=== PATIENT | female | born 1975 | race Caucasian/White ===

== ENCOUNTER 2017-04-18 17:19 | Emergency (ER) | payer BC, OTHER ==
[~2017-04-18] VITALS: Ht 144.8 cm; Wt 62.0 kg
[2017-04-18 17:25] VITALS: Ht 144.8 cm; Wt 62.0 kg
[2017-04-18 18:06] LABS: ADD SCAN DIFF NO
[2017-04-18 18:08] LABS: BASOPHIL # 0.1 10^3/ul (0.0-0.1); BASOPHILS % 0.9 % (0.0-2.0); EOSINOPHILS # 0.1 10^3/ul (0.0-0.5); EOSINOPHILS % 2.1 % (0.0-7.0); HEMATOCRIT 39.6 % (37.0-47.0); HEMOGLOBIN 13.7 g/dl (12.0-16.0); LYMPHOCYTES # 1.7 10^3/ul (0.8-2.9); LYMPHOCYTES % 25.1 % (15.0-51.0); MEAN CORPUSCULAR HEMOGLOBIN 33.5 pg (29.0-33.0); MEAN CORPUSCULAR HGB CONC 34.6 g/dl (32.0-37.0); MEAN CORPUSCULAR VOLUME 96.8 fl (82.0-101.0); MEAN PLATELET VOLUME 12.7 fl (7.4-10.4); MONOCYTE # 0.4 10^3/ul (0.3-0.9); MONOCYTES % 6.5 % (0.0-11.0); NEUTROPHIL # 4.4 10^3/ul (1.6-7.5); NEUTROPHILS % 65.1 % (39.0-77.0); PLATELET COUNT 160 10^3/UL (140-415); RED BLOOD COUNT 4.09 10^6/ul (4.20-5.40); RED CELL DISTRIBUTION WIDTH 12.1 % (11.5-14.5); WHITE BLOOD COUNT 6.7 10^3/ul (4.8-10.8)
--- NOTE | 2017-04-18 18:38 | ERD ---
ER Documentation Chief Complaint Date/Time DATE: 04/18/17 TIME: 18:35 Chief Complaint VAG BLEED , 4 WEEKS PREG HPI 41-year-old female [place]-speaking. [employer]crete [employer] use. The patient is at approximately 4 weeks. She has had approximately 2 weeks of cramping and bleeding worse over the past several days. She denies any lightheadedness or dizziness. She followed up with her KILN OPERATOR but states that nothing was done for her at that time. ROS All systems reviewed and are negative except as per history of present illness. Medications Home Meds Active Scripts Nitrofurantoin Monohyd Macrocr* (Macrobid*) 100 Mg Capsr, 100 MG PO BID for 7 Days, CAP Prov:MIKKI EMMANUEL MD 04/18/17 PMhx/Soc Medical and Surgical Hx: pt denies Medical Hx, pt denies Surgical Hx Hx Alcohol Use: No Hx Substance Use: No Hx Tobacco Use: No Smoking Status: Never smoker Physical Exam Vitals Vital Signs Date Time Temp Pulse Resp B/P Pulse Ox O2 Delivery O2 Flow Rate FiO2 04/18/17 17:25 97.6 90 18 115/66 99 Physical Exam General: Well developed, well nourished, no acute distress Head: Normocephalic, atraumatic. Eyes: Pupils equally reactive, EOM intact ENT: Moist mucous membranes Neck: Supple, no lymphadenopathy Respiratory: Lungs clear bilaterally, no distress Cardiovascular: RRR, no murmurs, rubs, or gallops Abdominal: Soft, non-tender, non-distended, no peritoneal signs : Deferred MSK: No edema, no unilateral swelling, 5/5 strength Neurologic: Alert and oriented, moving all extremities, normal speech, no focal weakness, no cerebellar signs Skin: No rash Psych: Normal mood Result Diagram: 04/18/17 9831 Results 24 hrs Laboratory Tests Test 04/18/17 17:57 04/18/17 18:00 White Blood Count 6.710^3/ul Red Blood Count 4.0910^6/ul Hemoglobin 13.7g/dl Hematocrit 39.6% Mean Corpuscular Volume 96.8fl Mean Corpuscular Hemoglobin 33.5pg Mean Corpuscular Hemoglobin Concent 34.6g/dl Red Cell Distribution Width 12.1% Platelet Count 50414^3/UL Mean Platelet Volume 12.7fl Neutrophils % 65.1% Lymphocytes % 25.1% Monocytes % 6.5% Eosinophils % 2.1% Basophils % 0.9% Nucleated Red Blood Cells % 0.0/100WBC Neutrophils # 4.410^3/ul Lymphocytes # 1.710^3/ul Monocytes # 0.410^3/ul Eosinophils # 0.110^3/ul Basophils # 0.110^3/ul Nucleated Red Blood Cells # 0.010^3/ul Beta HCG, Quantitative 2794.4mIU/ml Urine Color YELLOW Urine Clarity SLIGHTLY CLOUDY Urine pH 5.0 Urine Specific [place] 1.034 Urine Ketones TRACEmg/dL Urine Nitrite NEGATIVEmg/dL Urine Bilirubin NEGATIVEmg/dL Urine Urobilinogen NEGATIVEmg/dL Urine Leukocyte Esterase NEGATIVELeu/ul Urine Microscopic RBC 24/HPF Urine Microscopic WBC 4/HPF Urine Squamous Epithelial Cells FEW/HPF Urine Calcium Oxalate Crystals MANY/HPF Urine Mucus FEW/HPF Urine Hemoglobin 3+mg/dL Urine Glucose NEGATIVEmg/dL Urine Total Protein 1+mg/dl Procedures/MDM EKG, MONITORS, & DIAGNOSTIC IMAGING: Pelvic ultrasound: IMPRESSION: Single live intrauterine consistent with a gestational age of 5 weeks , 4 days . The estimated date of delivery is 12/15/2017 . Dating by ultrasound is within 12 days of dating by LMP. RPTAT: EE LAB INTERPRETATION: Serum hC Rh status: Rh+, no indication for RhoGam MEDICAL DECISION MAKING: The patient's symptoms are most consistent with acute threatened miscarriage. She exhibits no signs or symptoms concerning for acute ectopic however this needs to be evaluated here in the emergency room and be ruled out. In addition I doubt other acute intra-abdominal process such as ovarian cyst, ovarian torsion, acute appendicitis, colitis, kidney stone, acute pancreatitis or acute cholecystitis. The patient will require further evaluation, laboratory testing and diagnostic imaging to evaluate and rule out acute ectopic . Patient will also require prompt outpatient KILN OPERATOR follow-up. We discussed this at the bedside. We had an in-depth conversation regarding the diagnosis of threatened miscarriage, the prevalence of this process, the expected management as well as return precautions. ER COURSE: Ultrasound confirms IUP, no evidence of ectopic . Outpatient management with KILN OPERATOR recommended. Asymptomatic bacteria noted. Macrobid will be initiated. I kept the patient and/or family informed of laboratory and diagnostic imaging results throughout the emergency room course. DISPOSITION PLAN: We discussed follow up with the patient's primary care doctor within 24 to 48 hours as needed. We also discussed return to the emergency room for worsening symptoms or worsening condition. Close outpatient KILN OPERATOR follow-up for repeat hCG value in 2-3 days and ultrasound as needed. Discharge medications: Macrobid Departure Diagnosis: Primary Impression: Asymptomatic bacteriuria during Additional Impression: Threatened Condition: Good MIKKI EMMANUEL MD Apr 18, 2017 18:37
--- NOTE | 2017-04-18 18:50 | RADRPT ---
PROCEDURE: OBSTETRICAL ULTRASOUND WITH ENDOVAGINAL IMAGES CLINICAL INDICATION: Vaginal Bleed () TECHNIQUE: Multiple sonographic images of the pelvis were obtained utilizing a transabdominal and endovaginal technique. The images were reviewed on a PACS workstation. COMPARISON: None. LMP: 02/26/2017 FINDINGS: There is a single live intrauterine with heart rate of 129 beats per minute, mean sa c diameter of 0.59 cm, yolk sac, and crown-rump length of 0.27 cm which is consistent with a gestati onal age of 5 weeks, 4 days . The estimated date of delivery by ultrasound is 12/15/2017 . The estimated gestational age by LMP is 7 weeks, 2 days . The estimated date of delivery by LMP is 12/03/2017 . The right ovary measures 1.9 x 1.5 x 1.7 cm. The left ovary measures 2.5 x 1.4 x 2.4 cm. There is no rmal vascular flow in both ovaries. No significant ovarian lesions are seen. No significant pelvic free fluid is identified. IMPRESSION: Single live intrauterine consistent with a gestational age of 5 weeks, 4 days . The estimated date of delivery is 12/15/2017 . Dating by ultrasound is within 12 days of dating by LMP. RPTAT: EE Physician Iftikhar Date Time Electronically viewed and signed by Physician Iftikhar on 04/18/2017 18:49 /
[2017-04-18 18:54] LABS: ADD UMIC YES; UR ASCORBIC ACID 40 mg/dL (NEGATIVE); UR BILIRUBIN (Dip) NEGATIVE (NEGATIVE); UR BLOOD (Dip) 3+ mg/dL (NEGATIVE); UR CLARITY SLIGHTLY CLOUDY (CLEAR); UR COLOR YELLOW (YELLOW); UR GLUCOSE (Dip) NEGATIVE (NEGATIVE); UR KETONES (Dip) TRACE mg/dL (NEGATIVE); UR LEUKOCYTE ESTERASE (Dip) NEGATIVE Leu/ul (NEGATIVE); UR MUCUS FEW /HPF (NONE SEEN); UR NITRITE (Dip) NEGATIVE (NEGATIVE); UR RBC 24 /HPF (0-5); UR SPECIFIC GRAVITY (Dip) 1.034 (1.003-1.030); UR SQUAMOUS EPITHELIAL CELL FEW /HPF (FEW); UR TOTAL PROTEIN (Dip) 1+ mg/dl (NEGATIVE); UR UROBILINOGEN (Dip) NEGATIVE (NEGATIVE)
[2017-04-18] MEDS ORDERED: NITR-58 PO (19:04)
[2017-04-18 19:12] VITALS: BP 109/71; PULSE 79; RESP 18
== END 2017-04-18 19:15 | disposition home or self-care (01) ==
LOC: MERGE 17:19 → FTE 17:19
DX: O23.41 Unspecified infection of urinary tract in pregnancy, first trimester (principal); O20.0 Threatened abortion; Z3A.01 Less than 8 weeks gestation of pregnancy
CPT/HCPCS: 36415; 76801; 76817; 81001; 84702; 85025; 86900; 86901; Z7502

== ENCOUNTER 2017-04-19 17:52 | Emergency (ER) | payer BC, MEDICAID ==
[~2017-04-19] VITALS: Ht 152.4 cm; Wt 61.5 kg
[~2017-04-19 17:52] MED LIST: NITR-58 PO
[2017-04-19 17:56] VITALS: Ht 152.4 cm; Wt 61.5 kg
--- NOTE | 2017-04-19 18:35 | ERD ---
ER Documentation Chief Complaint Date/Time DATE: 04/19/17 TIME: 18:32 Chief Complaint VAG BLEED WAS SEEN HERE YESTERDAY W/DIFFERENT M# HPI 41-year-old female presents here in emergency department for complaints of vaginal bleeding started yesterday. Patient passed some tissue today. Patient states the bleeding became more heavy. Patient is supposed to be 4 weeks , LMP 02/26/2017. Patient's complaining of pelvic pain cramping pain 4/ 10 scale, commenting the symptoms. Patient denies any fever or chills. ROS All systems reviewed and are negative except as per history of present illness. Medications Home Meds Reported Medications [None] Unknown Strength No Conflict Check 04/19/17 Allergies Allergies: Coded Allergies: No Known Allergy (Unverified Allergy, Unknown, 11/14/06) PMhx/Soc Medical and Surgical Hx: pt denies Medical Hx, pt denies Surgical Hx FmHx Family History: No coronary disease, No diabetes, No other Physical Exam Vitals Vital Signs Date Time Temp Pulse Resp B/P Pulse Ox O2 Delivery O2 Flow Rate FiO2 04/19/17 17:56 99.1 76 18 112/68 100 Physical Exam GENERAL: The patient is well developed and appropriate for usual state of health, in no apparent distress. CHEST: Clear to auscultation bilaterally. There are no rales, wheezes or rhonchi. HEART: Regular rate and rhythm. No murmurs, clicks, rubs or gallops. No S3 or S4. ABDOMEN: Soft, nontender and nondistended. Good bowel sounds. No rebound or guarding. No gross peritonitis. No gross organomegaly or masses. No Schrader sign or McBurney point tenderness. BACK: No midline or flank tenderness. EXTREMITIES: Equal pulses bilaterally. There is no peripheral clubbing, cyanosis or edema. No focal swelling or erythema. Full range of motion. Grossly neurovascularly intact. NEURO: Alert and oriented. Cranial nerves 2-12 intact. Motor strength in all 4 extremities with 5/5 strength. Sensation grossly intact. Normal speech and gait. SKIN: There is no apparent rash or petechia. The skin is warm and dry. HEMATOLOGIC AND LYMPHATIC: There is no evidence of excessive bruising or lymphedema. No gross cervical, axillary, or inguinal lymphadenopathy. VAGINAL: Moderate amount of blood in the vaginal vault. The cervical os is closed. No cervical motion tenderness or adnexal tenderness noted. Result Diagram: 04/19/17 1900 Results 24 hrs Laboratory Tests Test 04/19/17 18:50 04/19/17 19:00 Urine Color YELLOW Urine Clarity CLEAR Urine pH 5.0 Urine Specific [place] 1.017 Urine Ketones NEGATIVEmg/dL Urine Nitrite NEGATIVEmg/dL Urine Bilirubin NEGATIVEmg/dL Urine Urobilinogen NEGATIVEmg/dL Urine Leukocyte Esterase NEGATIVELeu/ul Urine Microscopic RBC 7/HPF Urine Microscopic WBC 1/HPF Urine Hemoglobin 1+mg/dL Urine Glucose NEGATIVEmg/dL Urine Total Protein NEGATIVEmg/dl White Blood Count 7.510^3/ul Red Blood Count 4.0710^6/ul Hemoglobin 13.6g/dl Hematocrit 39.3% Mean Corpuscular Volume 96.6fl Mean Corpuscular Hemoglobin 33.4pg Mean Corpuscular Hemoglobin Concent 34.6g/dl Red Cell Distribution Width 12.1% Platelet Count 24202^3/UL Mean Platelet Volume 12.5fl Neutrophils % 66.4% Lymphocytes % 26.1% Monocytes % 4.8% Eosinophils % 1.7% Basophils % 0.7% Nucleated Red Blood Cells % 0.0/100WBC Neutrophils # 5.010^3/ul Lymphocytes # 2.010^3/ul Monocytes # 0.410^3/ul Eosinophils # 0.110^3/ul Basophils # 0.110^3/ul Nucleated Red Blood Cells # 0.010^3/ul Beta HCG, Quantitative 2522.8mIU/ml PROCEDURE: OBSTETRICAL ULTRASOUND WITH ENDOVAGINAL IMAGES CLINICAL INDICATION: Vaginal Bleed () TECHNIQUE: Multiple sonographic images of the pelvis were obtained utilizing a transabdominal and endovaginal technique. The images were reviewed on a PACS workstation. COMPARISON: None. LMP: 02/26/2017 FINDINGS: There is a single live intrauterine with heart rate of 129 beats per minute, mean sac diameter of 0.59 cm, yolk sac, and crown-rump length of 0.27 cm which is consistent with a gestational age of 5 weeks, 4 days . The estimated date of delivery by ultrasound is 12/15/2017 . The estimated gestational age by LMP is 7 weeks, 2 days . The estimated date of delivery by LMP is 12/03/2017 . The right ovary measures 1.9 x 1.5 x 1.7 cm. The left ovary measures 2.5 x 1.4 x 2.4 cm. There is normal vascular flow in both ovaries. No significant ovarian lesions are seen. No significant pelvic free fluid is identified. IMPRESSION: Single live intrauterine consistent with a gestational age of 5 weeks , 4 days . The estimated date of delivery is 12/15/2017 . Dating by ultrasound is within 12 days of dating by LMP. RPTAT: EE Gilberto Brown Physician Date Time Electronically viewed and signed by Gilberto Brown, Physician on 04/18/2017 18:49 RA/ CC: MIKKI EMMANUEL MD PROCEDURE: US OB. CLINICAL INDICATION: Positive , vaginal bleeding TECHNIQUE: Transabdominal and transvaginal views of the pelvis are available for review. COMPARISON: No prior studies are available for comparison. FINDINGS: Uterus: Normal; 9 x 5.4 x 4.6 cm. There is no evidence of myometrial mass. Incidental Nabothian cysts within the cervix are present Endometrial cavity: No intrauterine is identified, the thickness is normal measuring 5.7 mm. Right ovary / adnexa: Ovarian size is normal measuring 2.7 x 1.5 x 1 cm and there is no evidence of adnexal mass. Normal blood flow on Doppler interrogation is present. Left ovary/adnexa: Ovarian size is normal measuring 2 x 1.5 x 1.2 cm with no evidence of ovarian or adnexal mass. Normal blood flow seen on Doppler interrogation. Small corpus luteum cyst of approximately 1.7 cm with internal hemorrhage or debris is noted. Cul-de-sac: No evidence of free fluid. RPTAT:HJJR IMPRESSION: 1. No intrauterine identified. Ectopic is not excluded, but there are no suspicious findings at this time. Correlation with serial beta HCG is suggested with ultrasound followup as clinically indicated. 2. Nabothian cysts of the cervix. 3. Approximately 1.7 cm left ovarian cyst, possibly corpus luteum with internal hemorrhage or debris. Physician Niall Date Time Electronically viewed and signed by Eyal Mcdonald Physician on 04/19/2017 19:24 JR/ CC: AYANA STARK NP Procedures/MDM Medical Decision Making: Patients vaginal bleeding is most likely consistent of possible spontaneous , patient passed the tissue was sent to pathology. Patient does not show any evidence of hypovolemic shock. Patients hemoglobin and hematocrit is stable. There is low suspicion for ectopic . DIANA results show no intrauterine , previous is seen intrauterine not seen anymore. BetaHCG Quantitative is low The patient is Rh+, does not need RhoGAM this time. There is no signs of symptoms of dehydration. There is low suspicion for sepsis. Patient appears well and is hemodynamically stable. Disposition: Home. Condition: Stable Instructions: Patient is advised to do bed rest, avoid heavy lifting, and avoid having sex until cleared by OB doctor. Patient is advised to follow up with OB doctor or here at the ER in 48 hours for reevaluation of symptoms, repeat beta HCG quantitative and ultrasound. Patient is advised that is symptoms are worst, severe bleeding, dizziness, severe abdominal pain, fever, worst signs and symptoms to return to the emergency department immediately. Departure Diagnosis: Primary Impression: Spontaneous Condition: Stable Patient Instructions: Miscarriage, Spontaneous (Completed) Additional Instructions: Patient is advised to do bed rest, avoid heavy lifting, and avoid having sex until cleared by OB doctor. Patient is advised to follow up with OB doctor or here at the ER in 48 hours for reevaluation of symptoms, repeat beta HCG quantitative and ultrasound. Patient is advised that is symptoms are worst, severe bleeding, dizziness, severe abdominal pain, fever, worst signs and symptoms to return to the emergency department immediately. AYANA STARK NP Apr 19, 2017 18:35
[2017-04-19 19:07] LABS: ADD SCAN DIFF NO
[2017-04-19 19:09] LABS: ADD UMIC YES; UR ASCORBIC ACID 40 mg/dL (NEGATIVE); UR BILIRUBIN (Dip) NEGATIVE (NEGATIVE); UR BLOOD (Dip) 1+ mg/dL (NEGATIVE); UR CLARITY CLEAR (CLEAR); UR COLOR YELLOW (YELLOW); UR GLUCOSE (Dip) NEGATIVE (NEGATIVE); UR KETONES (Dip) NEGATIVE (NEGATIVE); UR LEUKOCYTE ESTERASE (Dip) NEGATIVE Leu/ul (NEGATIVE); UR NITRITE (Dip) NEGATIVE (NEGATIVE); UR RBC 7 /HPF (0-5); UR SPECIFIC GRAVITY (Dip) 1.017 (1.003-1.030); UR TOTAL PROTEIN (Dip) NEGATIVE (NEGATIVE); UR UROBILINOGEN (Dip) NEGATIVE (NEGATIVE)
[2017-04-19 19:10] LABS: BASOPHIL # 0.1 10^3/ul (0.0-0.1); BASOPHILS % 0.7 % (0.0-2.0); EOSINOPHILS # 0.1 10^3/ul (0.0-0.5); EOSINOPHILS % 1.7 % (0.0-7.0); HEMATOCRIT 39.3 % (37.0-47.0); HEMOGLOBIN 13.6 g/dl (12.0-16.0); LYMPHOCYTES % 26.1 % (15.0-51.0); MEAN CORPUSCULAR HEMOGLOBIN 33.4 pg (29.0-33.0); MEAN CORPUSCULAR HGB CONC 34.6 g/dl (32.0-37.0); MEAN CORPUSCULAR VOLUME 96.6 fl (82.0-101.0); MEAN PLATELET VOLUME 12.5 fl (7.4-10.4); MONOCYTE # 0.4 10^3/ul (0.3-0.9); MONOCYTES % 4.8 % (0.0-11.0); NEUTROPHILS % 66.4 % (39.0-77.0); PLATELET COUNT 166 10^3/UL (140-415); RED BLOOD COUNT 4.07 10^6/ul (4.20-5.40); RED CELL DISTRIBUTION WIDTH 12.1 % (11.5-14.5); WHITE BLOOD COUNT 7.5 10^3/ul (4.8-10.8)
--- NOTE | 2017-04-19 19:25 | RADRPT ---
PROCEDURE: US OB. CLINICAL INDICATION: Positive , vaginal bleeding TECHNIQUE: Transabdominal and transvaginal views of the pelvis are available for review. COMPARISON: No prior studies are available for comparison. FINDINGS: Uterus: Normal; 9 x 5.4 x 4.6 cm. There is no evidence of myometrial mass. Incidental Nabothian cy sts within the cervix are present Endometrial cavity: No intrauterine is identified, the thickness is normal measuring 5.7 mm. Right ovary / adnexa: Ovarian size is normal measuring 2.7 x 1.5 x 1 cm and there is no evidence of adnexal mass. Normal blood flow on Doppler interrogation is present. Left ovary/adnexa: Ovarian size is normal measuring 2 x 1.5 x 1.2 cm with no evidence of ovarian or adnexal mass. Normal blood flow seen on Doppler interrogation. Small corpus luteum cyst of approxi mately 1.7 cm with internal hemorrhage or debris is noted. Cul-de-sac: No evidence of free fluid. RPTAT:HJJR IMPRESSION: 1. No intrauterine identified. Ectopic is not excluded, but there are no suspi cious findings at this time. Correlation with serial beta HCG is suggested with ultrasound followup as clinically indicated. 2. Nabothian cysts of the cervix. 3. Approximately 1.7 cm left ovarian cyst, possibly corpus luteum with internal hemorrhage or debri s. Physician Niall Date Time Electronically viewed and signed by Physician Niall on 04/19/2017 19:24 JR/
[2017-04-20] MEDS ORDERED: PRENAT PO (02:18)
[2017-04-20] MEDS ORDERED: NITR-58 PO (02:18)
== END 2017-04-19 21:34 | disposition home or self-care (01) ==
LOC: FTE 17:52
DX: O03.9 Complete or unspecified spontaneous abortion without complication (principal); R10.2 Pelvic and perineal pain
CPT/HCPCS: 36415; 76801; 76817; 81001; 84702; 85025; 86900; 86901; 88305; Z7502

== ENCOUNTER 2017-04-20 00:44 | Emergency (ER) | payer BC ==
[~2017-04-20] VITALS: Ht 152.4 cm; Wt 61.0 kg
[2017-04-20 00:56] VITALS: Ht 152.4 cm; Wt 61.0 kg
[2017-04-20] MEDS ORDERED: SOD CHLORIDE 0.9% 1,000 ML IV STA (01:03)
[2017-04-20 02:01] LABS: ADD SCAN DIFF NO
[2017-04-20 02:02] LABS: BASOPHIL # 0.1 10^3/ul (0.0-0.1); BASOPHILS % 0.7 % (0.0-2.0); EOSINOPHILS # 0.2 10^3/ul (0.0-0.5); EOSINOPHILS % 2.3 % (0.0-7.0); HEMATOCRIT 41.7 % (37.0-47.0); HEMOGLOBIN 14.2 g/dl (12.0-16.0); LYMPHOCYTES # 2.3 10^3/ul (0.8-2.9); LYMPHOCYTES % 31.3 % (15.0-51.0); MEAN CORPUSCULAR HEMOGLOBIN 32.9 pg (29.0-33.0); MEAN CORPUSCULAR HGB CONC 34.1 g/dl (32.0-37.0); MEAN CORPUSCULAR VOLUME 96.8 fl (82.0-101.0); MEAN PLATELET VOLUME 12.7 fl (7.4-10.4); MONOCYTE # 0.5 10^3/ul (0.3-0.9); MONOCYTES % 6.5 % (0.0-11.0); NEUTROPHIL # 4.3 10^3/ul (1.6-7.5); NEUTROPHILS % 58.9 % (39.0-77.0); PLATELET COUNT 162 10^3/UL (140-415); RED BLOOD COUNT 4.31 10^6/ul (4.20-5.40); RED CELL DISTRIBUTION WIDTH 12.1 % (11.5-14.5); WHITE BLOOD COUNT 7.4 10^3/ul (4.8-10.8)
--- NOTE | 2017-04-20 02:07 | RADRPT ---
PROCEDURE: Chest. CLINICAL INDICATION: Syncope. TECHNIQUE: Single frontal view of the chest was obtained. COMPARISON: None. FINDINGS: The cardiac silhouette is within normal limits. The aortic arch is unremarkable. There is no focal consolidation, vascular congestion or pleural effusion. There is no pneumothorax. IMPRESSION: No evidence for active cardiopulmonary disease. .Bowen Newman MD, MD Date Time Electronically viewed and signed by .Bowen Newman MD, on 04/20/2017 02:06 .T/
[2017-04-20] MEDS ORDERED: PRENAT PO (02:18)
[2017-04-20] MEDS ORDERED: NITR-58 PO (02:18)
[2017-04-20 02:21] LABS: ANION GAP 13 (8-16); BLOOD UREA NITROGEN 17 mg/dl (7-20); CALCIUM 9.4 mg/dl (8.4-10.2); CARBON DIOXIDE 30 mmol/L (21-31); CHLORIDE 102 mmol/L (97-110); CREATININE 0.81 mg/dl (0.44-1.00); GLUCOSE 91 mg/dl (70-220); POTASSIUM 3.2 mmol/L (3.5-5.1); SODIUM 142 mmol/L (135-144)
[2017-04-20 03:10] LABS: TROPONIN-I < 0.012 ng/ml (0.00-0.12)
--- NOTE | 2017-04-20 04:07 | ERD ---
ER Documentation Chief Complaint Date/Time DATE: 04/20/17 TIME: 04:05 Chief Complaint was seen here today for vag bleed went home and had a syncopal episode HPI 42-year-old female seen today for vaginal bleeding went home and a syncopal episode. Denies any chest pain. Denies palpitations. Denies any fevers or chills. Denies any nausea vomiting. Denies any other current complaints. ROS All systems reviewed and are negative except as per history of present illness. Medications Home Meds Reported Medications Nitrofurantoin Monohyd Macrocr* (Macrobid*) 100 Mg Capsr, 100 MG PO BID, CAP 04/20/17 Multivit/Min/Fol Ac/Iron/Pren* ( S*) 1 Tab Tab, 1 TAB PO DAILY, TAB 04/20/17 Discontinued Reported Medications [None] Unknown Strength No Conflict Check 04/19/17 Allergies Allergies: Coded Allergies: No Known Allergy (Unverified , 04/20/17) PMhx/Soc Medical and Surgical Hx: pt denies Medical Hx, pt denies Surgical Hx Hx Alcohol Use: No Hx Substance Use: No Hx Tobacco Use: Yes Smoking Status: Current every day smoker Physical Exam Vitals Vital Signs Date Time Temp Pulse Resp B/P Pulse Ox O2 Delivery O2 Flow Rate FiO2 04/20/17 00:56 98.1 80 20 102/61 96 Physical Exam Const: [] Head: Atraumatic Eyes: Normal Conjunctiva ENT: Normal External Ears, Nose and Mouth. Neck: Full range of motion..~ No meningismus. Resp: Clear to auscultation bilaterally Cardio: Regular rate and rhythm, no murmurs Abd: Soft, non tender, non distended. Normal bowel sounds Skin: No petechiae or rashes Back: No midline or flank tenderness Ext: No cyanosis, or edema Neur: Awake and alert Psych: Normal Mood and Affect Result Diagram: 04/20/1711404/20/17114 Results 24 hrs Laboratory Tests Test 04/20/17 01:15 04/20/17 01:16 White Blood Count 7.410^3/ul Red Blood Count 4.3110^6/ul Hemoglobin 14.2g/dl Hematocrit 41.7% Mean Corpuscular Volume 96.8fl Mean Corpuscular Hemoglobin 32.9pg Mean Corpuscular Hemoglobin Concent 34.1g/dl Red Cell Distribution Width 12.1% Platelet Count 04628^3/UL Mean Platelet Volume 12.7fl Neutrophils % 58.9% Lymphocytes % 31.3% Monocytes % 6.5% Eosinophils % 2.3% Basophils % 0.7% Nucleated Red Blood Cells % 0.0/100WBC Neutrophils # 4.310^3/ul Lymphocytes # 2.310^3/ul Monocytes # 0.510^3/ul Eosinophils # 0.210^3/ul Basophils # 0.110^3/ul Nucleated Red Blood Cells # 0.010^3/ul Sodium Level 142mmol/L Potassium Level 3.2mmol/L Chloride Level 102mmol/L Carbon Dioxide Level 30mmol/L Anion Gap 13 Blood Urea Nitrogen 17mg/dl Creatinine 0.81mg/dl Glucose Level 91mg/dl Calcium Level 9.4mg/dl Troponin I < 0.012ng/ml Bedside Glucose 88mg/dL Current Medications Medications (Trade) Dose Ordered Sig/[place] Route PRN Reason Start Time Stop Time Status Last Admin Dose Admin Sodium Chloride (NS) 1,000 ml @ 1,000 mls/hr Q1H STAT IV 04/20/17 01:03 04/20/17 02:02 DC 04/20/17 01:24 Procedures/MDM EKG: Rate/Rhythm: Normal Sinus Rhythm QRS, ST, T-waves: No changes consistent w/ acute ischemia Impression: No evidence of ischemia or arrhythmia Chest X-ray 1V Interpreted by me: Soft Tissue: No acute abnormalities Bones: No acute abnormalities Mediastinum/Cardiac Silhouette/Lungs: No acute abnormalities Patient's syncopal symptoms have stabilized while in the department and are suitable for outpatient follow up. Exam and work up not consistent w/ ischemia, arrhythmia, stroke, PE or dissection. Departure Diagnosis: Primary Impression: Syncope Syncope type: unspecified Qualified Code: R55 - Syncope, unspecified syncope type Condition: Stable Patient Instructions: Syncope, Unk Cause SHIRIN LYNCH Apr 20, 2017 04:07
[2017-04-20 04:11] VITALS: BP 104/68; PULSE 90; RESP 13
== END 2017-04-20 04:11 | disposition home or self-care (01) ==
LOC: E/R 00:44
DX: R55 Syncope and collapse (principal); F17.210 Nicotine dependence, cigarettes, uncomplicated
CPT/HCPCS: 36415; 71010; 80048; 82962; 84484; 85025; 93005; J7030; Z7502

== ENCOUNTER 2017-06-24 22:54 | Emergency (ER) | payer BC ==
[~2017-06-24] VITALS: Wt 64.0 kg
[~2017-06-24 22:54] MED LIST changes: +PRENAT PO
[2017-06-25] MEDS ORDERED: HYDROCODONE/APAP (5/325) TAB PO ONE (00:30)
[2017-06-25 00:52] LABS: BASOPHIL # 0.1 10^3/ul (0.0-0.1); BASOPHILS % 0.5 % (0.0-2.0); EOSINOPHILS # 0.3 10^3/ul (0.0-0.5); EOSINOPHILS % 2.4 % (0.0-7.0); LYMPHOCYTES # 2.5 10^3/ul (0.8-2.9); LYMPHOCYTES % 23.4 % (15.0-51.0); MEAN CORPUSCULAR HEMOGLOBIN 32.4 pg (29.0-33.0); MEAN CORPUSCULAR HGB CONC 33.3 g/dl (32.0-37.0); MEAN CORPUSCULAR VOLUME 97.2 fl (82.0-101.0); MEAN PLATELET VOLUME 12.9 fl (7.4-10.4); MONOCYTE # 0.8 10^3/ul (0.3-0.9); MONOCYTES % 7.1 % (0.0-11.0); NEUTROPHILS % 66.2 % (39.0-77.0); PLATELET COUNT 171 10^3/UL (140-415); RED BLOOD COUNT 4.32 10^6/ul (4.20-5.40); RED CELL DISTRIBUTION WIDTH 11.7 % (11.5-14.5); WHITE BLOOD COUNT 10.7 10^3/ul (4.8-10.8)
[2017-06-25 01:13] LABS: ALBUMIN/GLOBULIN RATIO 1.33; BILIRUBIN,INDIRECT 0.1 mg/dl (0-1.1); BILIRUBIN,TOTAL 0.1 mg/dl (0.2-1.3); CALCIUM 9.6 mg/dl (8.4-10.2); CREATININE 0.75 mg/dl (0.44-1.00); POTASSIUM 3.8 mmol/L (3.5-5.1)
[2017-06-25 01:22] LABS: ADD UMIC YES; UR ASCORBIC ACID NEGATIVE (NEGATIVE); UR BACTERIA FEW /HPF (NONE SEEN); UR BILIRUBIN (Dip) NEGATIVE (NEGATIVE); UR BLOOD (Dip) 1+ mg/dL (NEGATIVE); UR CLARITY SLIGHTLY CLOUDY (CLEAR); UR COLOR YELLOW (YELLOW); UR GLUCOSE (Dip) NEGATIVE (NEGATIVE); UR KETONES (Dip) NEGATIVE (NEGATIVE); UR LEUKOCYTE ESTERASE (Dip) TRACE Leu/ul (NEGATIVE); UR MUCUS MANY /HPF (NONE SEEN); UR NITRITE (Dip) NEGATIVE (NEGATIVE); UR RBC 12 /HPF (0-5); UR SPECIFIC GRAVITY (Dip) 1.027 (1.003-1.030); UR TOTAL PROTEIN (Dip) NEGATIVE (NEGATIVE); UR UROBILINOGEN (Dip) 1+ mg/dL (NEGATIVE)
--- NOTE | 2017-06-25 01:39 | ERD ---
ER Documentation Chief Complaint Date/Time DATE: 06/25/17 TIME: 01:37 Chief Complaint Pelvic pain since 19 of april post miscarriage. LMP 06/01/17. HPI 42-year-old female comes in the lower abdominal pain in the suprapubic region going to her left flank for approximately a month now worsening over the last 2 weeks. Patient's pain is achy, sharp, moderate and intermittent. She states that the last time she had her period was on June 01, she also had a spontaneous on April 19.She denies fevers or chills, nausea, vomiting. Patient denies vaginal bleeding.Patient states she has painful urination and urgency as well. ROS All systems reviewed and are negative except as per history of present illness. Medications Home Meds Active Scripts Ibuprofen* (Motrin*) 600 Mg Tab, 600 MG PO Q6, #30 TAB Prov:JOSE NORIEGA PA-C 06/25/17 Phenazopyridine Hcl* (Pyridium*) 100 Mg Tab, 100 MG PO TID Y for URINARY PAIN, # 8 TAB Prov:JOSE NORIEGA PA-C 06/25/17 Nitrofurantoin Monohyd Macrocr* (Macrobid*) 100 Mg Capsr, 100 MG PO BID for 7 Days, CAP Prov:JOSE NORIEGA PA-C 06/25/17 Nitrofurantoin Monohyd Macrocr* (Macrobid*) 100 Mg Capsr, 100 MG PO BID for 7 Days, CAP Prov:MIKKI EMMANUEL MD 04/18/17 Reported Medications Nitrofurantoin Monohyd Macrocr* (Macrobid*) 100 Mg Capsr, 100 MG PO BID, CAP 04/20/17 Multivit/Min/Fol Ac/Iron/Pren* ( S*) 1 Tab Tab, 1 TAB PO DAILY, TAB 04/20/17 Allergies Allergies: Coded Allergies: No Known Allergy (Unverified , 04/20/17) PMhx/Soc History of Surgery: No Anesthesia Reaction: No Hx Neurological Disorder: No Hx Respiratory Disorders: No Hx Cardiac Disorders: No Hx Psychiatric Problems: No Hx Miscellaneous Medical Probl: No (pt was earlier dx with miscarriage today) Hx Alcohol Use: No Hx Substance Use: No Hx Tobacco Use: Yes Smoking Status: Light tobacco smoker Physical Exam Vitals Vital Signs Date Time Temp Pulse Resp B/P Pulse Ox O2 Delivery O2 Flow Rate FiO2 9/8/17 23:18 98.4 75 20 111/75 98 Physical Exam General: Well-developed, well-nourished. The patient appears in no acute distress. HEENT: Head is normocephalic, atraumatic. No scleral icterus. Pupils are equal , round, and reactive. Oral mucous membranes are moist. No pharyngeal erythema. Neck: Supple. Nontender. Lungs: Clear to auscultation. Normal air movement. Heart: Regular rate and rhythm. S1 and S2 are normal. No murmurs, gallops, or rubs. Abdomen: Soft, Suprapubic tenderness with palpation nondistended. Bowel sounds are normoactive.No McBurney's tenderness, negative Schrader sign. No CVA tenderness. Extremities: No clubbing or cyanosis. Normal pulses. Moving extremities x 4. No weakness. Neurologic: Alert and oriented 3. No focal deficits. Skin: Normal turgor. No rash or lesions. Result Diagram: 06/25/17 0031 06/25/17 0031 Results 24 hrs Laboratory Tests Test 06/25/17 00:31 White Blood Count 10.710^3/ul Red Blood Count 4.3210^6/ul Hemoglobin 14.0g/dl Hematocrit 42.0% Mean Corpuscular Volume 97.2fl Mean Corpuscular Hemoglobin 32.4pg Mean Corpuscular Hemoglobin Concent 33.3g/dl Red Cell Distribution Width 11.7% Platelet Count 84049^3/UL Mean Platelet Volume 12.9fl Neutrophils % 66.2% Lymphocytes % 23.4% Monocytes % 7.1% Eosinophils % 2.4% Basophils % 0.5% Nucleated Red Blood Cells % 0.0/100WBC Neutrophils # (Manual) 7.110^3/ul Lymphocytes # 2.510^3/ul Monocytes # 0.810^3/ul Eosinophils # 0.310^3/ul Basophils # 0.110^3/ul Nucleated Red Blood Cells # 0.010^3/ul Urine Color YELLOW Urine Clarity SLIGHTLY CLOUDY Urine pH 5.0 Urine Specific [place] 1.027 Urine Ketones NEGATIVEmg/dL Urine Nitrite NEGATIVEmg/dL Urine Bilirubin NEGATIVEmg/dL Urine Urobilinogen 1+mg/dL Urine Leukocyte Esterase TRACELeu/ul Urine Microscopic RBC 12/HPF Urine Microscopic WBC 14/HPF Urine Bacteria FEW/HPF Urine Mucus MANY/HPF Urine Hemoglobin 1+mg/dL Urine Glucose NEGATIVEmg/dL Urine Total Protein NEGATIVEmg/dl Urine Test NEGATIVE Sodium Level 139mmol/L Potassium Level 3.8mmol/L Chloride Level 103mmol/L Carbon Dioxide Level 28mmol/L Anion Gap 12 Blood Urea Nitrogen 20mg/dl Creatinine 0.75mg/dl Glucose Level 81mg/dl Calcium Level 9.6mg/dl Total Bilirubin 0.1mg/dl Direct Bilirubin 0.00mg/dl Indirect Bilirubin 0.1mg/dl Aspartate Amino Transf (AST/SGOT) 19IU/L Alanine Aminotransferase (ALT/SGPT) 22IU/L Alkaline Phosphatase 98IU/L Total Protein 7.0g/dl Albumin 4.0g/dl Globulin 3.00g/dl Albumin/Globulin Ratio 1.33 Current Medications Medications (Trade) Dose Ordered Sig/[place] Route PRN Reason Start Time Stop Time Status Last Admin Dose Admin Acetaminophen/ Hydrocodone Bitart ([place] (5/325)) 1 tab ONCE ONCE PO 06/25/17 00:30 06/25/17 00:31 DC 06/25/17 00:32 DIAGNOSTIC IMAGING REPORT Patient: PHYLLIS OLIVO : 1975 Age: 42 Sex: F MR #: [id number] DOS: 06/25/17 0005 Ordering MD: JOSE NORIEGA PA-C Location: [facility] Room/Bed: PROCEDURE: US Non-OB Pelvis. CLINICAL INDICATION: Pelvic pain. TECHNIQUE: Multiple sonographic images of the pelvis were obtained utilizing a transabdominal and endovaginal technique. The images were reviewed on a PACS workstation. COMPARISON: None. FINDINGS: The uterus is visualized and measures 8.9 x 4.3 x 5.4 cm. The endometrial echo complex is normal and measures 6 mm. There are Nabothian cysts in the cervix. The right ovary measures 2.6 x 1.3 x 1.5 cm. The left ovary measures 3.7 x 2.1 x 3.0 cm. There is a 2.7 cm simple left ovarian cyst, normal for age. Blood flow is demonstrated to both ovaries. No adnexal masses are noted. There is a trace volume of free fluid, probably physiologic. IMPRESSION: 1. Unremarkable pelvic ultrasound. RPTAT: HTAR .Roby Costa MD, MD Date Time Electronically viewed and signed by .Roby Costa MD, MD on 06/25/2017 01:58 .R/ CC: JOSE NORIEGA PA-C Procedures/[facility] Medical decision makin-year-old female presents with suprapubic abdominal pain going to the flank, patient has evidence of a urinary tract infection with flank pain. Clinically she does not present with any toxic appearance, signs of sepsis. Blood work shows normal white blood cell count, normal renal function, and urine does show evidence of infection.Patient's ultrasound is negative for ovarian masses, pelvic masses, retained products. Urine is positive for infection, the patient also does complain of UTI symptoms and will be treated for urinary tract infection. Her symptoms are most consistent with a UTI, doubt PID, cervicitis, acute appendicitis. Departure Diagnosis: Primary Impression: UTI (urinary tract infection) Additional Impression: Flank pain Condition: Good JOSE NORIEGA PA-C Jun 25, 2017 01:39
--- NOTE | 2017-06-25 01:59 | RADRPT ---
PROCEDURE: US Non-OB Pelvis. CLINICAL INDICATION: Pelvic pain. TECHNIQUE: Multiple sonographic images of the pelvis were obtained utilizing a transabdominal and endovaginal technique. The images were reviewed on a PACS workstation. COMPARISON: None. FINDINGS: The uterus is visualized and measures 8.9 x 4.3 x 5.4 cm. The endometrial echo complex is normal and measures 6 mm. There are Nabothian cysts in the cervix. The right ovary measures 2.6 x 1.3 x 1.5 cm. The left ovary measures 3.7 x 2.1 x 3.0 cm. There is a 2.7 cm simple left ovarian cyst, normal for age. Blood flow is demonstrated to both ovaries. No adnexal masses are noted. There is a trace volume of free fluid, probably physiologic. IMPRESSION: 1. Unremarkable pelvic ultrasound. RPTAT: HTAR .Roby Costa MD, Date Time Electronically viewed and signed by .Roby Costa MD, on 06/25/2017 01:58 .R/
[2017-06-25] MEDS ORDERED: NITR-58 PO (02:17)
[2017-06-25] MEDS ORDERED: IBUP-1542 PO (02:17)
[2017-06-25] MEDS ORDERED: PHEN-537 PO (02:17)
== END 2017-06-25 03:00 | disposition home or self-care (01) ==
LOC: FTE 22:54
DX: N39.0 Urinary tract infection, site not specified (principal); F17.210 Nicotine dependence, cigarettes, uncomplicated
CPT/HCPCS: 36415; 76830; 76856; 80053; 81001; 84703; 85025; Z7502; Z7610